=== PATIENT | female | born 1950 | race Caucasian/White ===

== ENCOUNTER 2019-12-30 09:59 | Outpatient (CLI) | payer MEDICARE, MEDICAID ==
[~2019-12-30 09:59] MED LIST: ATOR40TA PO; HYDR-3965 PO; MECL-184 PO; PANT40SU2 PO; PROC10TA10 PO; WARF-113 PO
[2019-12-30] MEDS ORDERED: LIDOcaine 2% 5ml jelly ONE (10:40)
== END 2019-12-30 23:59 | disposition home or self-care (01) ==
LOC: WOUND CARE 09:59 → EDSTATUS 10:00 → WOUND CARE 23:59
PROVIDERS: ATTEND Nurse Practitioner Family
DX: I83.12 Varicose veins of left lower extremity with inflammation (principal); L97.222 Non-pressure chronic ulcer of left calf with fat layer exposed; L97.821 Non-pressure chronic ulcer of other part of left lower leg limited to breakdown of skin; I25.9 Chronic ischemic heart disease, unspecified; F41.9 Anxiety disorder, unspecified; E78.5 Hyperlipidemia, unspecified; K21.9 Gastro-esophageal reflux disease without esophagitis; I25.10 Atherosclerotic heart disease of native coronary artery without angina pectoris; Z79.899 Other long term (current) drug therapy; Z86.718 Personal history of other venous thrombosis and embolism; Z79.01 Long term (current) use of anticoagulants; Z90.89 Acquired absence of other organs; Z98.61 Coronary angioplasty status
CPT/HCPCS: 97597

== ENCOUNTER 2020-04-07 10:06 | Emergency (ER) | payer MEDICARE, MEDICAID ==
[~2020-04-07] VITALS: Ht 167.6 cm; Wt 94.0 kg
[2020-04-07 10:27] VITALS: BP 117/76
[2020-04-07] MEDS ORDERED: triamcinolone acetonide 40mg/ml inj IM ONE (11:45)
[2020-04-07] MEDS ORDERED: TRIA15CR61 TOP (12:32)
== END 2020-04-07 12:43 | disposition home or self-care (01) ==
LOC: ER 10:06
DX: L23.9 Allergic contact dermatitis, unspecified cause (principal); I25.10 Atherosclerotic heart disease of native coronary artery without angina pectoris; K21.9 Gastro-esophageal reflux disease without esophagitis; G89.29 Other chronic pain; Z90.49 Acquired absence of other specified parts of digestive tract; Z98.61 Coronary angioplasty status; Z86.718 Personal history of other venous thrombosis and embolism; Z98.890 Other specified postprocedural states; Z88.0 Allergy status to penicillin; Z88.5 Allergy status to narcotic agent; Z88.2 Allergy status to sulfonamides; Z88.8 Allergy status to other drugs, medicaments and biological substances; Z79.899 Other long term (current) drug therapy
CPT/HCPCS: 96372; 99283; J3301

== ENCOUNTER 2023-10-12 14:22 | Emergency (ER) | payer MEDICARE, MEDICAID ==
[~2023-10-12] VITALS: Ht 165.1 cm; Wt 84.1 kg
[~2023-10-12 14:22] MED LIST changes: +APIX2.5T PO; -MECL-184 PO; +MECL-231 PO; +NITR0.3T SL; -PROC10TA10 PO; -WARF-113 PO
[2023-10-12 16:36] VITALS: BP 152/127; PULSE 90; RESP 16; TEMP 96.4; O2SAT 96
== END 2023-10-12 17:54 | disposition left against medical advice (07) ==
LOC: ER 14:23
DX: M79.605 Pain in left leg (principal); Z88.0 Allergy status to penicillin; Z88.8 Allergy status to other drugs, medicaments and biological substances; Z53.21 Procedure and treatment not carried out due to patient leaving prior to being seen by health care provider